=== PATIENT | female | born 1965 | race Caucasian/White ===

== ENCOUNTER 2019-05-25 07:23 | Emergency (ER) | payer BC, SELFPAY ==
[2019-05-25 07:31] VITALS: BP 118/66; PULSE 76; RESP 16; TEMP 36.7; O2SAT 99
--- NOTE | 2019-05-25 08:02 | ED.GENADUL_ITS ---
Discharge Plan Disposition Patient Disposition: HOME Condition: Stable Discharge Details Chief Complaint: Orthopedic Clinical Impression: Superficial thrombophlebitis Primary Care Provider: Chaya,Local ED Provider: Al Serrano Home Meds and New Rx's Prescriptions: No Action No Known Home Meds RF: 0 Discharge Instructions Instructions: Superficial Thrombophlebitis (ED) Additional Instructions: take 81mg aspirin daily call the radiology department on Monday for an appointment if you have severe worsening pain or fevers or difficulty breathing/chest pain return to the emergency department Medical Decision Making 53 yo female with no chronic medical problems comes in with right leg discomfort. She denies trauma, recent falls, recent immobiliziation and no fevers or chills. She has no leg swelling and has full rom of the leg. On the thigh medially is a linear area of mild erythema that is not warm to touch and is about 4cm in length and has a similar area on right lower calf medial that is 2cm in length that is also not warm to touch. No leg swelling so doubt dvt, seems more consistent with superficial thrombophlebitis. Not warm to touch or severely tender, no crepitus ,doubt cellulitis or infected thrombis or nec fasc. Will have patient start taking asa and return on Monday for an ultrasound. Return precautions also given Differential Diagnosis superficial thrombophlebitis, cellulitis HPI General Mode of arrival: ambulatory . Date/Time Provider Initiated Documentation: 05/25/19 07:49 . Limitations to Documentation: no limitations . Information obtained by: patient . History of Present Illness 53 year old F presents to the emergency department with the chief complaint of right leg pain, described as moderate, Quality is described as aching, and is localized to the right and lower extremity. Patient reports no radiation. Patient started experiencing this day(s) (2) and it has been constant. No relieving factors improve symptom(s), No exacerbating factors reported . Patient notes no other symptoms.. Patient did receive the following treatments prior to arrival, none Related Data Home Medications Medication Instructions Recorded Confirmed Unknown [No Known Home Meds] 09/08/17 05/25/19 Allergies Allergy/AdvReac Type Severity Reaction Status Date / Time codeine Allergy Mild Nausea Unverified 05/25/19 07:34 General Stated Complaint: Orthopedic KALYAN: 3 Review of Systems Review of Systems All systems reviewed & are unremarkable except as noted in HPI and below Constitutional Denies chills, Denies fever(s) and Denies weakness Cardiovascular Denies chest pain and Denies dyspnea Respiratory Denies cough and Denies dyspnea Gastrointestinal Denies abdominal pain, Denies nausea and Denies vomiting Musculoskeletal Denies joint swelling Integumentary/Breasts Denies rash Neurologic Denies weakness PFSH Social History Do you feel safe in your relationship?: Yes Exam Const General: no acute distress Orientation: alert HENMT Head: normal to inspection Ears: external ears normal General nose exam: external nose normal Mouth: moist mucous membranes Eyes General: appearance normal, both eyes and all related structures Neck Neck: normal visual inspection Resp Effort & Inspection: normal respiratory effort and able to speak in complete sentences Cardio Rate: regular rate Skin General skin exam: elasticity normal Neuro General: alert and oriented x3 Extrem General: full ROM and normal capillary refill Psych Mental Status: mental status grossly normal Course Vital Signs Temperature 36.7 C 05/25/19 07:31 Pulse 76 05/25/19 07:31 Respiratory Rate 16 05/25/19 07:31 Blood Pressure 118/66 05/25/19 07:31 Pulse Oximetry 99 05/25/19 07:31 Temperature 36.7 C 05/25/19 07:31 Temperature Source Skin 05/25/19 07:31 Pulse 76 05/25/19 07:31 Respiratory Rate 16 05/25/19 07:31 Respiratory Effort Non-Labored 05/25/19 07:31 Blood Pressure 118/66 05/25/19 07:31 Blood Pressure Position Sitting 05/25/19 07:31 Pulse Oximetry 99 05/25/19 07:31 Oxygen Delivery Method Room Air 05/25/19 07:31 Oxygen Flow Rate 0 05/25/19 07:31 Comment 05/25/19 07:31
== END 2019-05-25 08:36 | disposition home or self-care (01) ==
LOC: ER 08:45
PROVIDERS: Emergency Provider Emergency Medicine
DX: I80.01 Phlebitis and thrombophlebitis of superficial vessels of right lower extremity (principal)
CPT/HCPCS: 99282

== ENCOUNTER 2019-05-27 08:14 | Outpatient (CLI) | payer BC, SELFPAY ==
--- NOTE | 2019-05-27 13:02 | DI.US_ITS ---
SYMPTOMS/DIAGNOSIS: RT LEG PAIN, ? DVT RIGHT LOWER EXTREMITY ULTRASOUND: The deeps veins of the right lower extremity show normal compression, augmentation and color flow. The saphenofemoral junction appears unremarkable. The visualized portions of the greater saphenous vein are patent. No evidence of thrombophlebitis. IMPRESSION: No evidence of a right lower extremity deep venous thrombus.
== END 2019-05-27 08:34 ==
PROVIDERS: Visit Provider Emergency Medicine
DX: M79.604 Pain in right leg (principal)
CPT/HCPCS: 93971

== ENCOUNTER 2019-05-27 13:29 | Emergency (ER) | payer BC, SELFPAY ==
[2019-05-27 13:38] VITALS: BP 119/78; PULSE 74; RESP 16; TEMP 36.7; O2SAT 99
--- NOTE | 2019-05-27 14:10 | W.ED.GENAD ---
Discharge Plan Disposition Patient Disposition: HOME Condition: Good Discharge Details Chief Complaint: Recheck Clinical Impression: Ecchymosis Primary Care Provider: None,None ED Provider: Pamela Edwards Home Meds and New Rx's Prescriptions: No Action No Known Home Meds RF: 0 Discharge Instructions Instructions: Ecchymosis (ED) Additional Instructions: Your ultrasound today does not have any acute abnormalities, no evidence of clot. Please continue to elevate your extremity. You may treat your discomfort with Tylenol and ibuprofen. You may try topical options such as Salonpas or Lidoderm patches. medical education coordinator will contact you with primary care appointment. If you develop fevers/chills, sensation changes, increased pain or other new/worsening symptoms please seek care urgently once again. Discharge Data Discharge Date/Time-TO BE ENTERED AT DEPARTURE: 05/27/19 14:29 Medical Decision Making Patient is a 53-year-old female who was seen here 2 days ago with chief complaints of right medial thigh and posterior calf discomfort. At that time, patient was diagnosed with superficial thrombophlebitis and was advised that she would need a outpatient ultrasound to evaluate for possible DVT. At that time, ultrasound was unavailable. Patient has been taking aspirin as directed. No evidence of infection. Ultrasound was read by radiologist as negative no evidence of superficial thrombophlebitis or DVT. Discussed these findings with the patient. Advised ecchymosis from unknown etiology. She does not have ecchymosis elsewhere. She denies any easy bleeding. Denies any hematuria or melena. Advised that she will need follow-up with primary care. As the patient is new to the area and does not have a primary care, I have asked her healthcare liaison help with establishing this. She was given strict return precautions. All of her questions and concerns were addressed and she is in agreement this plan. HPI General Mode of arrival: ambulatory. Date/Time Provider Initiated Documentation: 05/27/19 13:54. Limitations to Documentation: no limitations. Information obtained by: patient and RN notes reviewed. HPI Narrative: Patient presents for results of DVT US that was preformed prior to arrival. Patient was seen here on 05/25/19 for unusual linear bruising to right medial thigh and posterior right calf. There was concern for clot, patient diagnosed with superficial thrombophlebitis and discharged home with instructions to use daily ASA which she has been doing. Denies SOB, CP. States that while discomfort over area of ecchymosis on the medial thigh persists, it overall has improved. Please see Dr. Serrano's initial note. Related Data Home Medications Medication Instructions Recorded Confirmed Unknown [No Known Home Meds] 09/08/17 05/25/19 Allergies Allergy/AdvReac Type Severity Reaction Status Date / Time codeine Allergy Mild Nausea Unverified 05/25/19 07:34 General Stated Complaint: Recheck KALYAN: 5 Review of Systems Constitutional Reports as per HPI, Denies chills, Denies fever(s), Denies headache(s) and Denies weakness ENT Denies headache(s) Cardiovascular Reports as per HPI, Denies chest pain, Denies palpitations, Denies dyspnea and Denies dyspnea on exertion Respiratory Reports as per HPI, Denies cough, Denies dyspnea and Denies dyspnea on exertion Musculoskeletal Reports as per HPI and Denies tingling Integumentary/Breasts Reports as per HPI, Denies rash, Reports unusual bruising and Denies wounds Neurologic Reports as per HPI, Denies headache(s), Denies tingling, Denies paresthesias and Denies weakness Endocrine Denies palpitations [facility] Social History Smoking/Tobacco Use Status: Never Drug use: Rarely Substance use type: does not use and marijuana Do you feel safe at home: Yes Do you feel safe in your relationship?: Yes Exam Const General: cooperative, healthy appearing, comfortable, no acute distress, well developed and well groomed Nutritional Appearance: average body habitus and well nourished Orientation: alert and awake Resp Effort & Inspection: normal respiratory effort, able to speak in complete sentences and no respiratory distress Cardio Rate: regular rate Rhythm: regular rhythm Skin General skin exam: ecchymosis (10cm x 2cm linear ecchymotic area right medial thigh) Neuro General: alert and awake Cognition: normal cognition Speech: speech normal Gait: normal gait Motor: muscle tone normal throughout Sensory Exam: no sensory deficits noted Extrem Right lower extremity: full ROM, normal capillary refill, no joint enlargement, hip/thigh Details: tenderness (along area of ecchymosis) and normal ROM; no swelling, no abrasions, no crepitus and no unusual warmth, knee Details: normal to inspection, lower leg Details: no edema; inspection abnormal (posterior calf discomfort, she indicates where the ecchymosis had been), no erythema, no tenderness, no localized swelling, no palpable cords, no deformity and no unusual warmth and foot Details: normal capillary refill and vascular exam Details: dorsalis pedis pulse present and normal capillary refill; abnormal to inspection (ecchymosis as above) and no edema Psych Appearance: grossly normal and well kempt Mental Status: mental status grossly normal Speech and Movement: speech and movement normal Course Vital Signs Temperature 36.7 C 05/27/19 13:38 Pulse 74 05/27/19 13:38 Respiratory Rate 16 05/27/19 13:38 Blood Pressure 119/78 05/27/19 13:38 Pulse Oximetry 99 05/27/19 13:38 Temperature 36.7 C 05/27/19 13:38 Temperature Source Skin 05/27/19 13:38 Pulse 74 05/27/19 13:38 Respiratory Rate 16 05/27/19 13:38 Respiratory Effort Non-Labored 05/27/19 13:41 Blood Pressure 119/78 05/27/19 13:38 Blood Pressure Position Sitting 05/27/19 13:38 Pulse Oximetry 99 05/27/19 13:38 Oxygen Delivery Method Room Air 05/27/19 13:38 Oxygen Flow Rate 0 05/27/19 13:38 Pain Level 4 05/27/19 13:38
== END 2019-05-27 14:29 | disposition home or self-care (01) ==
PROVIDERS: Emergency Provider Physician Assistant
DX: S70.11XA Contusion of right thigh, initial encounter (principal); S80.11XA Contusion of right lower leg, initial encounter; X58.XXXA Exposure to other specified factors, initial encounter
CPT/HCPCS: 99281

== ENCOUNTER 2021-04-13 14:14 | Emergency (ER) | payer BC, SELFPAY ==
[2021-04-13 14:16] VITALS: BP 144/82; PULSE 88; TEMP 36.9; O2SAT 98
--- NOTE | 2021-04-13 14:26 | ED.GENADUL_ITS ---
Discharge Plan Disposition Patient Disposition: HOME Condition: Stable Discharge Details Clinical Impression: Dermatitis Primary Care Provider: None,None ED Provider: Real Stallworth Home Meds and New Rx's Prescriptions: No Action No Known Home Meds RF: 0 Discharge Instructions Instructions: Dermatitis (ED) Additional Instructions: At this time I do not see any obvious signs of secondary infection that would require antibiotic therapy. I have placed you on the care management list help expedite outpatient primary care follow-up. I would avoid harsh make-ups, cr eams, cleaning agents, etc. to your face. I do believe that the cream that you picked up [id number] the all-natural 1% hydrocortisone cream is completely appropriate but will likely take more than 1 application to help resolve your symptoms. I would also continue to attempt to be seen by [facility] dermatology, hopefully they can see you sooner than already scheduled. Please watch for new or worsening symptoms and return to the ER for any concerns. Discharge Data Discharge Date/Time-TO BE ENTERED AT DEPARTURE: 04/13/21 15:20 Medical Decision Making 55-year-old female presents for 4-day rash across her forehead, pruritic in nature, tried 1% hydrocortisone cream and caused mild burning. She is unaware of any obvious environmental exposures. Examination is most consistent with a mild dermatitis. I see no indication for antibiotic therapy. I believe the all-natural 1% hydrocortisone cream without any additional scents or additives is perfectly appropriate. I explained to her that this may take a few days to truly see any improvement. I also stressed the importance that I believe dermatology is most appropriate for her especially if she does get a few eruptions occasionally. I recommend that she contact her dermatology team and attempt to be seen sooner than her scheduled appointment. She was encouraged to return to the ER for new or worsening symptoms. Patient was comfortable with this plan and had no additional questions or concerns at this time. Medical Records Medical records reviewed: Yes I reviewed the patient's medical records. HPI General Mode of arrival: ambulatory . Date/Time Provider Initiated Documentation: 04/13/21 14:22 . Limitations to Documentation: no limitations . Information obtained by: patient . HPI Narrative: This is a 55-year-old female, denies significant past medical history, presented to the ER for a forehead rash for the past 3 or 4 days. She states that she occasionally gets eruptions to her face, wonders if this could be rosacea, is attempting to be seen by dermatology at [facility]. She denies recent illness or trauma. She denies rash elsewhere on her body. She thought that the initial lesion on her forehead started out as a pimple but there are currently no more pustules. Her primary complaint is that of itching but not pain. Denies discharge or drainage. Patient states that she bought [id number] all natural 1% hydrocortisone cr eam, applied it prior to arrival but states that it caused the area to feel a slight burning so she wipes in the cream off I decided to come to the ER. Related Data Home Medications Medication Instructions Recorded Confirmed Unknown [No Known Home Meds] 09/08/17 04/13/21 Allergies Allergy/AdvReac Type Severity Reaction Status Date / Time codeine Allergy Mild Nausea Unverified 05/25/19 07:34 General Stated Complaint: RashLesion KALYAN: 5 Review of Systems Constitutional Constitutional: Denies fever(s) and Denies headache(s) Eyes Eyes: Denies eye discharge and Denies irritation ENT Ears, Nose, Mouth, and Throat: Denies headache(s) and Denies neck pain Musculoskeletal Musculoskeletal: Denies neck pain, Denies numbness and Denies tingling Integumentary/Breasts Skin/Breast: Reports rash Neurologic Neurologic: Denies headache(s), Denies numbness and Denies tingling ON LICENSE OF [facility] Social History Smoking/Tobacco Use Status: Never Smoking risk assessment performed?: Yes Alcohol Intake: current Alcohol Intake frequency: a few times a month Drug use: Rarely Substance use type: marijuana Do you feel safe at home: Yes Do you feel safe in your relationship?: Yes Exam Const General: cooperative, healthy appearing, comfortable and no acute distress Orientation: alert and awake [facility] Head: normal to inspection, normocephalic and atraumatic Ears: hearing grossly normal bilaterally General nose exam: external nose normal Face and sinus: erythema Face images: 1. Patchy, slightly papular erythematous lesions. They are easily blanchable. There is no induration, warmth, fluctuance, drainage. No signs of secondary infection such as cellulitis or acute acne. Skin is intact Mouth: moist mucous membranes Throat: posterior oropharynx normal Eyes General: appearance normal, both eyes and all related structures Alignment and Position: alignment normal Periorbital: periorbital findings normal Eyelids: eyelids normal Conjunctivae: conjunctivae normal Sclera: sclerae normal Cornea: corneas normal Pupils: PERRL EOM: EOM intact bilaterally Direct ophthalmoscopy: normal light reflex Neck Neck: normal visual inspection, full ROM, trachea midline and supple Resp Effort & Inspection: normal respiratory effort and able to speak in complete sentences Skin Rashes: rashes noted Neuro General: patient alert, patient awake, moves all extremities and no focal motor deficits Cognition: normal cognition Speech: speech normal Gait: normal gait Sensory Exam: no sensory deficits noted Psych Appearance: grossly normal Mental Status: mental status grossly normal Course Vital Signs Vital signs: Vital Signs Temperature 36.9 C 04/13/21 14:16 Pulse 88 04/13/21 14:16 Blood Pressure 144/82 H 04/13/21 14:16 Pulse Oximetry 98 04/13/21 14:16 Temperature 36.9 C 04/13/21 14:16 Temperature Source Temporal Artery Scan 04/13/21 14:16 Pulse 88 04/13/21 14:16 Respiratory Effort Non-Labored 04/13/21 14:21 Blood Pressure 144/82 H 04/13/21 14:16 Blood Pressure Position Sitting 04/13/21 14:16 Pulse Oximetry 98 04/13/21 14:16 Oxygen Delivery Method Room Air 04/13/21 14:16 Oxygen Flow Rate 0 04/13/21 14:16 Pain Level 5 04/13/21 14:16
--- NOTE | 2021-04-13 19:02 | NUR.NOTE ---
Nursing Note: referral to cm for pcp
== END 2021-04-13 15:20 | disposition home or self-care (01) ==
PROVIDERS: Emergency Provider Physician Assistant
DX: L30.8 Other specified dermatitis (principal)
CPT/HCPCS: 99282

== ENCOUNTER 2021-08-30 01:25 | Outpatient (CLI) | payer BC, SELFPAY ==
--- NOTE | 2021-08-30 06:15 | DI.MAMMO_ITS ---
Exam(s) MAMMO SCREENING EXAM: MAMMO SCREENING CLINICAL HISTORY: screening,Z12.39. TECHNIQUE: Bilateral full field digital CC and MLO mammographic images were obtained with 3D tomosyn thesis and utilizing computer aided detection (CAD). COMPARISON: Prior outside mammograms dating back to 2013, the most recent being 2016. FINDINGS: Fibroglandular tissue pattern is again noted be dense, this decreasing the sensitivity of the mammogr am for finding in underlying lesions. There are no new obvious spiculated masses. Punctate benign-appearing microcalcifications are again noted scattered throughout both breasts. There are no obvious malignant-appearing microcalcification groups. There is no significant architectural distortion nor skin thickening-retraction. IMPRESSION: Dense bilateral fibroglandular tissue. Stable benign findings. No obvious radiographic evidence of malignancy. BI-RADS Category 2 - Benign Findings Breast Density - Category C - Heterogeneously dense Breast density Category C or D implies that the patient has dense breast tissue. Dense breast tissue can make it harder to find cancer on a mammogram. Dense breast tissue is also associated with an incr eased risk of breast cancer. This information about the result of the mammogram report was provided to the patient to raise their awareness. Use this report when you speak with the patient about their risks for breast cancer, which includes their family history. At that time, you may recommend additional screening tests (Ultrasoun d or MRI) as these tests may add significant information. A negative radiographic report should not delay biopsy if a dominant or clinically suspicious mass is present. Up to ten percent of cancers are not identified on mammography. A negative report may reinforce clinical impression. Adenosis and dense breasts may obscure an underlying neoplasm. False positive reports average 6 to 10%. Patient will receive a letter notifying them of these results.
== END 2021-08-30 01:45 ==
DX: Z12.31 Encounter for screening mammogram for malignant neoplasm of breast (principal); R92.8 Other abnormal and inconclusive findings on diagnostic imaging of breast; R92.0 Mammographic microcalcification found on diagnostic imaging of breast
CPT/HCPCS: 77063; 77067

== ENCOUNTER 2021-09-14 11:34 | Outpatient (REF) | payer BC, SELFPAY ==
--- NOTE | 2021-09-14 10:40 | PAPFT_PTH ---
PATIENT: Serenity Perry LOC: [facility] U#:[id number] AGE/SX: 55/F ROOM: RE09/14/[address]: Susy Guerrier APRN : 1965 BED: DIS: 09/14/2021 SPEC #: [id number] RECD: 09/14/21 12:58 STATUS: MARIA D REQ #: [id number] ARIS: 09/14/21 10:[address]: Susy Guerrier DEPT: [facility] Cytology RECD BY: Belkis Chavez Tissues: 1 - CX/ENDOCX FOR PAP SMEARS Procedures: PAP THIN PREP/UVM Screening HPV DNA PROBE Comments: [id number]
== END 2021-09-14 11:35 | disposition home or self-care (01) ==
LOC: LBN 11:34
DX: Z12.4 Encounter for screening for malignant neoplasm of cervix (principal); Z11.51 Encounter for screening for human papillomavirus (HPV); R87.610 Atypical squamous cells of undetermined significance on cytologic smear of cervix (ASC-US)
CPT/HCPCS: 88142; 87624

== ENCOUNTER 2022-10-11 02:57 | Outpatient (CLI) | payer BC, SELFPAY ==
[2022-10-11 14:34] LABS: ALT 40 U/L (14-59); AST 25 U/L (15-37); Albumin 4.1 g/dL (3.4-5.0); Alkaline Phosphatase 85 U/L (46-116); Anion Gap 9.7 mmol/L (3-11); BUN 13 mg/dL (7-18); Bilirubin, Total 1.2 mg/dL (0.2-1.0); CO2 28.3 mmol/L (21.0-32.0); CREATININE 0.7 mg/dL (0.55-1.02); Calcium 9.3 mg/dL (8.5-10.1); Calculated LDL 262 mg/dL (<100); Chloride 102 mmol/L (98-107); Cholesterol 354 mg/dL (<200); Estimated GFR 100.19 (mL/min/1.73m2); Glucose 91 mg/dL (74-106); HDL Cholesterol 72 mg/dL (40-60); Potassium 4.3 mmol/L (3.5-5.1); Sodium 140 mmol/L (136-145); TSH (W/Ref FT4) 1.63 uIU/mL (0.36-3.74); Total Protein 7.1 g/dL (6.4-8.2); Triglyceride 103 mg/dL (<150)
[2022-10-11 22:19] LABS: Rheumatoid Factor <8.6 IU/mL (<12.0)
[2022-10-12 09:44] LABS: Lyme Ab w Rflx to Lyme Confirm Negative (Negative)
[2022-10-12 10:33] LABS: HIV-1/2 Ag & Ab Screen Negative (Negative)
[2022-10-13 18:49] LABS: Anaplasma phagocytophilum Negative (Negative); B. miyamotoi PCR Negative (Negative); Babesia divergens/MO-1 Negative (Negative); Babesia duncani Negative (Negative); Babesia microti Negative (Negative); Ehrlichia chaffeensis Negative (Negative); Ehrlichia ewingii/canis Negative (Negative); Ehrlichia muris eauclairensis Negative (Negative)
== END 2022-10-11 02:58 | disposition home or self-care (01) ==
LOC: LBO 02:57
PROVIDERS: PCP Nurse Practitioner Family; Visit Provider Nurse Practitioner Family
DX: Z13.220 Encounter for screening for lipoid disorders (principal); M79.10 Myalgia, unspecified site; R53.83 Other fatigue
CPT/HCPCS: 36415; 80053; 80061; 87389; 87798; 84443; 86431; 86618

== ENCOUNTER 2022-11-03 06:55 | Day surgery (SDC) | payer BC, SELFPAY ==
--- NOTE | 2022-11-02 21:03 | W.COLOREPORT ---
Date of service: 11/03/22 Time of Service: 08:53 Colonoscopy Report Date of procedure: 11/03/22 Pre-op diagnosis general: screening colonoscopy Post-op diagnosis procedure note: other (Colon polyp) Procedure: colonoscopy with polypectomy Surgeon: Franklin Gore Anesthesia Type: General:No Airway Estimated blood loss (mL): 10 Pathology: other (Polyp at 40 cm) Complications: None Disposition: same day Indications: Dinorah is a 57 year old women who presents for her first screening colonoscopy as part of routine health maintenance. Prep: Miralax/Dulcolax Procedure Start Time: : Procedure End Time: 08:38 Retraction Time: 8 Findings: Single polyp at 40 cm Procedure Description: After the induction of monitored anesthetic care, and with the patient in left lateral decubitus position, I began by performing an external anorectal exam.? Perineum and skin were normal, as was the anal verge.? T there was a fibrosed external skin tag.? Next, I performed a digital rectal exam.? I did not appreciate any abnormal findings.? Next, I advanced a colonoscope into the rectal vault.? I performed retroflexion.? There is grade 1 internal hemorrhoids.? Using insufflation, I then advanced the colonoscope beyond the rectal folds and into the sigmoid colon before advancing towards the cecum.? The quality of the prep was excellent.? The scope was noted to be in the cecum by identification of the ileocecal valve and appendiceal orifice.? I then began withdrawing the colonoscope using repeated irrigation as necessary for full evaluation of the colonic mucosa. Around 40 cm from the anal verge I identified a 0.5 cm polyp. ?It appeared sessile in character. ?I was able to remove this with a cold forcep polypectomy. ?I examined the site, and there was minimal bleeding. ?Once this was completed, I continued to withdraw the scope and examine the remainder of the colonic mucosa.?Once the scope was withdrawn to the level of the rectum, great care was taken to examine portions of the rectal folds.? Finally, the scope was withdrawn and the patient was brought to the same-day surgery recovery unit as the anesthetic wore off. ?The findings and instructions were shared with the patient prior to discharge.
--- NOTE | 2022-11-02 21:05 | W.PM.DSUDISC ---
Date of service: 11/03/22 Time of Service: 08:50 Discharge Plan Disposition Patient Disposition: Home Condition: Good Discharge Details Reason For Visit: screening colonoscopy Attending Provider: Franklin Gore Primary Care Provider: Joseph Chen Home Meds and New Rx's Prescriptions: Continued eszopiclone [Lunesta] 1 mg tablet 1 mg PO QHS Qty: 30 0RF Label Comments: 11/02/22 pt reports having not taken in awhile paroxetine HCl [Paxil] 10 mg tablet 10 mg PO DAILY Qty: 90 3RF rosuvastatin 20 mg tablet 20 mg PO DAILY Qty: 90 0RF Discontinued bisacodyl [Dulcolax (bisacodyl)] 5 mg tablet,delayed release (DR/EC) 5 mg PO ONCE Qty: 4 0RF Rx Instructions: Take according to provider's instructions for colonoscopy prep. polyethylene glycol 3350 17 gram/dose powder 17 g PO ONCE Qty: 238 0RF Rx Instructions: To be taken as directed by prescriber's office for colonoscopy prep. Discharge Instructions Instructions: Hemorrhoids (GEN), Colorectal Polyps (GEN) Additional Instructions: 1. If tolerated, consume a soft, low fiber diet for 1-2 days. [address] not drive, drink alcohol, operate machinery, make critical decisions, or do activities that require coordination or balance for 24 hours. 3. Because air was put into your colon during the procedure, expelling air from your rectum (passing gas or farting) is normal. 4. You may not have a bowel movement for 1-3 days because of the colonoscopy prep. This is normal. 5. Go directly to the emergency room if you notice any of the following: Develop chills (warm to touch), or if you have a thermometer and your temperature is above 101 Difficulty breathing or difficultly swallowing Persistent vomiting Severe abdominal pain, other than gas cramps Severe chest pain Black, tarry stools Any bleeding ? exceeding one tablespoon 6. Call your physician if the site where your intravenous was started becomes red, swollen, painful, and warm to touch. 7. Your physician has reviewed your pre-procedure medications. Please continue to take those medications as previously ordered. You will be given specific information/education regarding any changes to your medications before leaving. Activity:: Activity as Tolerated Diet:: As Tolerated Discharge Orders Discharge Orders: Discharge Order (Routine); Ordered 11/02/22 Ordered By: Franklin Gore DS: Diagnosis Discharge Diagnosis (1) Colon polyp: Status: Acute Asessment and Plan: We performed a screening colonoscopy today. The quality of the preparation was excellent, and you did great. You have some very mild internal hemorrhoids. There was 1 single polyp found around 40 cm from the anus. I will contact you when I have the results of the pathology report.
[2022-11-03 07:06] VITALS: BP 123/79; PULSE 70; RESP 18; TEMP 36.5; O2SAT 98
[2022-11-03] MEDS: Lactated Ringers 1,000 ML 80 ML IV (07:40)
--- NOTE | 2022-11-03 07:50 | W.ANESPRE ---
General Info Date of Service Date Performed: 11/03/22 Height: 5 ft Weight: 59.8 kg Body Mass Index (BMI): 25.7 Surgical Procedure: Operation Date: 11/03/22 08:20 Proposed Procedure Side Surgeon jeffrey Gore MD Meds Allergies and Home Medications Allergies Allergy/AdvReac Type Severity Reaction Status Date / Time codeine Allergy Mild Nausea Unverified 11/03/22 07:24 acetaminophen [From Percocet] Allergy Unknown Unverified 11/03/22 07:24 hydrocodone [From Vicodin] Allergy Unknown Nausea Unverified 11/03/22 07:24 oxycodone [From Percocet] Allergy Unknown Nausea Unverified 11/03/22 07:24 Home Medication Medication Instructions Recorded eszopiclone 1 mg tablet (Lunesta) 1 mg PO QHS #30 tabs 09/28/22 paroxetine HCl 10 mg tablet (Paxil) 10 mg PO DAILY #90 tabs 10/03/22 rosuvastatin 20 mg tablet 20 mg PO DAILY #90 tabs 10/14/22 Current Visit Medications: Current Medications Generic Name Dose Route Start Last Admin Trade Name Freq PRN Reason Stop Dose Admin Hyoscyamine Sulfate 0.125 mg 11/02/22 21:07 Hyoscyamine 0.125 Mg Sl/Oral/Chew SL DIRECTED PRN Ringer's Solution 1,000 mls @ 80 mls/hr 11/03/22 06:00 11/03/22 07:40 IV 12/02/22 23:59 80 mls/hr INFUSION ANTONIO Administration IV Miscellaneous Supplies 1 each 11/03/22 06:00 Iv Access IV 12/02/22 23:59 DIRECTED ANTONIO Ondansetron HCl 4 mg 11/02/22 21:07 Ondansetron 4 Mg/2 Ml Vial IVP Q4H PRN PRN Nausea / Vomiting Sodium Chloride 0 ml 11/03/22 06:00 Normal Saline Flush 10 Ml Syr IV 12/02/22 23:59 PRN PRN Sodium Chloride 0 ml 11/03/22 06:00 Normal Saline 10 Ml Vial IJ 12/02/22 23:59 DIRECTED PRN Sterile Water 0 ml 11/03/22 06:00 Water,Injection,Sterile 10 Ml Vial IJ 12/02/22 23:59 DIRECTED PRN PFSH Active Problems Active Problems: Problem Status Onset Code Hyperlipidemia E78.5 Fatigue R53.83 Myalgia M79.10 Colon cancer screening Z12.11 Medical History Medical History Adenocarcinoma in situ of endocervix (~2000) Advanced directives, counseling/discussion Annual physical exam Carcinoma in situ of cervix uteri Depression Dermatitis Hx of human papillomavirus infection Impacted cerumen, right ear Menieres disease Menopause syndrome hearing aides helpful Mixed anxiety and depressive disorder R/T menopause Ovarian cyst Pure hypercholesterolemia Rotator cuff syndrome Screening cholesterol level Screening cholesterol level Uterine fibroid Medical History Comments:: Has had 2 cone biopsies; one surgery she had N/V; her mother has same issue Surgical History Surgical History Status post cone biopsy of uterine cervix Tobacco Smoking/Tobacco Use Status: Never Passive smoking exposure: Yes Second hand exposure: Yes Alcohol Alcohol Intake: current Alcohol intake frequency: a few times a month Alcohol type: beer, wine and hard liquor Substance Use Substance use: Rarely Substance use type: marijuana Vital Signs and Lab Results Vital Signs Most Recent Vital Signs in EMR: Most Recent Vital Signs Temp Pulse Resp BP Pulse Ox 36.5 C 70 18 123/79 98 11/03/22 07:06 11/03/22 07:06 11/03/22 07:06 11/03/22 07:06 11/03/22 07:06 Lab Results Blood Type / Crossmatch: No Data to Display Complete Blood Count: No Data to Display Complete Metabolic Panel: Sodium 140 mmol/L (136-145) 10/11/22 13:05 Potassium 4.3 mmol/L (3.5-5.1) 10/11/22 13:05 Chloride 102 mmol/L (98-107) 10/11/22 13:05 Carbon Dioxide 28.3 mmol/L (21.0-32.0) 10/11/22 13:05 BUN 13 mg/dL (7-18) 10/11/22 13:05 Creatinine 0.7 mg/dL (0.55-1.02) 10/11/22 13:05 Est GFR (CKD-EPI 2020) 100.19 (mL/min/1.73m2) 10/11/22 13:05 Calcium 9.3 mg/dL (8.5-10.1) 10/11/22 13:05 Albumin 4.1 g/dL (3.4-5.0) 10/11/22 13:05 Glucose 91 mg/dL (74-106) 10/11/22 13:05 Liver Function Panel: Alanine Aminotransferase (ALT/SGPT) 40 U/L (14-59) 10/11/22 13:05 Aspartate Amino Transf (AST/SGOT) 25 U/L (15-37) 10/11/22 13:05 Coagulation Panel: No Data to Display Cardiac Panel: No Data to Display Arterial Blood Gas: No Data to Display Venous Blood Gas: No Data to Display Pancreas Panel: No Data to Display Thyroid Panel: Thyroid Stimulating Hormone (TSH) 1.63 uIU/mL (0.36-3.74) 10/11/22 13:05 Infectious Disease: HIV (1&2) Ag and Ab, 4th Generation Negative (Negative) 10/11/22 13:05 Blood Cultures: No Data to Display Toxicology Panel: No Data to Display Anesthesia Assessment and Plan Anesthesia History Personal History: PONV Family History: Other Exercise Tolerance Exercise Tolerance: Metabolic Equivalents>4 Pertinent Negatives Pertinent Negatives: No Symptoms of GERD Cardiac & Pulmonary Exam Cardiac Exam: Normal S1/S2 Heart Sounds Pulmonary Exam: Clear Bilateral Breath Sounds Implantable Cardiac Device Does patient have a Pacemaker or an ICD?: No Airway Exam Known Difficult Airway: No Mallampati Class: 1 Mouth Opening: Normal (> 3cm) Thyromental Distance: Greater than 3 cm Neck Range of Motion: Full ROM Neck Circumference: Normal Teeth Condition: Normal Dentition ASA Classification ASA Score: ASA 2 Emergency Case?: No NPO Status NPO Status: NPO Clears >2 hours, Solids >8 hours Anesthesia Plan Resuscitation Status: Full Code Anesthesia Technique: General Anesthesia Airway Planned: Natural Airway Monitors Used: Standard Monitors
[2022-11-03 08:11] VITALS: BMI 25.7
--- NOTE | 2022-11-03 08:35 | BOWEL_PTH ---
PATIENT: Serenity Perry LOC: [facility] U#:[id number] AGE/SX: 57/F ROOM: RE11/03/[address]: Franklin Gore MD : 1965 BED: DIS: 11/03/2022 SPEC #: [id number] RECD: 11/03/22 12:51 STATUS: MARIA D RE #: [id number] ARIS: 11/03/22 08:[address]: Franklin Gore DEPT: Surgical Specimen RECD BY: Belkis Chavez ENTERED: 11/03/22 12:52 SP TYPE: Bowel OTHR DR: Joseph Hurt DNP Tissues: 1 - BIOPSY BOWEL Procedures: GROSS AND MICRO LEVEL 4 Comments: [id number]
[2022-11-03 08:48] VITALS: BP 115/68; PULSE 65; RESP 16; TEMP 36.3; O2SAT 97
--- NOTE | 2022-11-03 08:56 | W.ANESPOSTOP ---
Postoperative Evaluation Date, Time and Location Date Performed: 11/03/22 Time Performed: 08:57 Patient Location: Day Surgery Unit Vital Signs Most Recent Imported Vital Signs: Most Recent Vital Signs Temp Pulse Resp BP Pulse Ox 36.5 C 70 18 123/79 98 11/03/22 07:06 11/03/22 07:06 11/03/22 07:06 11/03/22 07:06 11/03/22 07:06 Pain Score Most Recent Pain Score: Most Recent Pain Score Pain Level 2 11/03/22 07:06 Assessment Mental Status: Awake (Alert & Oriented to Patient Baseline) Airway and Respiratory Function: Patent airway with normal (patient baseline) respiratory exam Cardiovascular Function: Hemodynamically Stable Hydration Status: Adequately Hydrated Nausea & Vomiting: No Nausea or Vomiting Pain: Pt. Denies Any Pain Peripheral Nerve Block: Patient did not receive a nerve block
[2022-11-03 09:18] VITALS: BP 114/77; PULSE 66; RESP 16; TEMP 36.3; O2SAT 100
[2022-11-03 09:45] VITALS: BP 114/77; PULSE 66; RESP 16; TEMP 36.3; O2SAT 100
== END 2022-11-03 06:56 | disposition home or self-care (01) ==
PROVIDERS: PCP Nurse Practitioner Family; Visit Provider Surgery
PROC: 0DJD8ZZ Inspection of Lower Intestinal Tract, Via Natural or Artificial Opening Endoscopic (ICD-10-PCS; CPT 45378; principal; 2022-11-03 08:15)
DX: Z12.11 Encounter for screening for malignant neoplasm of colon (principal); K63.5 Polyp of colon
CPT/HCPCS: 45380; 88305

== ENCOUNTER 2022-12-05 01:46 | Outpatient (CLI) | payer BC, SELFPAY ==
--- NOTE | 2022-12-05 07:15 | DI.US_ITS ---
Exam(s) US PELVIS TRANSVAGINAL EXAM: US PELVIS TRANSVAGINAL CLINICAL HISTORY: pain,uterine fibroid, d25.9. TECHNIQUE: Transabdominal and transvaginal pelvic ultrasound was performed using standard protocol. COMPARISON: No exams were available for comparison FINDINGS: KIDNEYS: Limited renal evaluation is unremarkable. UTERUS: Position: Anteverted. Size: 6.8 long by 3.7 AP by 4.8 transverse cm Endometrium: 0.7 cm. Mildly thickened in this postmenopausal patient. Myometrium: Mildly heterogeneous without a discrete mass. Cervix: Unremarkable. OVARIES: The right ovary is not seen transabdominally or transvaginally. No right adnexal mass is se en sonographically. Left: 1.4 x 1 x 1.4 cm Cyst or mass: No suspicious cystic or solid masses. DOPPLER: Color: Symmetric and uniform flow to the left ovary. CUL-DE-SAC: Free fluid: None. Other: None. IMPRESSION: 1. Limited evaluation of the kidneys is unremarkable. 2. The endometrial stripe is mildly thickened in this postmenopausal patient at 7 mm. Please correla te clinically. Consider gynecologic consult. 3. The right ovary is not visualized on this examination. No right adnexal mass is seen sonographica lly. The left ovary is unremarkable. DATA REPOSITORY:
--- NOTE | 2022-12-05 07:15 | DI.US_ITS ---
Exam(s) US SOFT TISS ABD WALL/LOW BACK EXAM: US SOFT TISS ABD WALL/LOW BACK CLINICAL HISTORY: ? lipomas,M79.89,soft tissue mass. TECHNIQUE: Ultrasound was performed using standard protocol. COMPARISON: No exams were available for comparison FINDINGS: Sonographic assessment utilizing grayscale and color Doppler imaging was performed and targeted to th e area of clinical concern. In the right upper quadrant in the subcutaneous tissues there is a 1.9 x 0.6 x 1.7 cm slightly hypere choic area corresponding to the palpable abnormality. Sonographically this would be most suggestive of a lipoma. In the soft tissues of the left lower extremity there is a slightly hyperechoic area me asuring 1.2 x 0.8 x 0.8 cm. This corresponds to the palpable abnormality and is most suggestive sono graphically of a lipoma. No suspicious cystic or solid masses are seen sonographically. IMPRESSION: Findings most suggestive sonographically of lipomas corresponding to the palpable abnormalities. DATA REPOSITORY:
--- NOTE | 2022-12-05 07:15 | DI.MAMMO_ITS ---
Exam(s) MAMMO SCREENING EXAM: MAMMO SCREENING CLINICAL HISTORY: screening,z12.39 TECHNIQUE: Bilateral full field digital CC and MLO mammographic images were obtained with 3D tomosyn thesis and utilizing computer aided detection (CAD). COMPARISON: Available for comparison. FINDINGS: Masses/Architectural Distortion: None seen. Microcalcifications: No suspicious pleomorphic-type are seen. Skin Thickening/Nipple Retraction: None. IMPRESSION: 1. No significant interval change with no specific features of malignancy noted. 2. Unless there is more urgent need, screening mammography is recommended, as per [place] [employer] guidelines. BI-RADS Category 1 - Negative Breast Density - Category C - Heterogeneously dense Breast density category C or D implies that the patient has dense breast tissue. Dense breast tissue is very common and is not abnormal but dense breast tissue can make it harder to find cancer on a ma mmogram. Also, dense breast tissue may increase their breast cancer risk. This information about the result of the mammogram report was provided to the patient to raise their awareness. Use this report when you speak with the patient about their risks for breast cancer, which includes their family hist ory. At that time, you may recommend for more screening tests (Ultrasound or MRI) as they might be us eful based on their risk. A negative radiographic report should not delay biopsy if a dominant or clinically suspicious mass is present. Up to ten percent of cancers are not identified on mammography. A negative report may reinforce clinical impression. Adenosis and dense breasts may obscure an underlying neoplasm. False positive reports average 6 to 10%. Patient will receive a letter notifying them of these results.
== END 2022-12-05 02:06 ==
LOC: DI 01:46
PROVIDERS: PCP Nurse Practitioner Family; Visit Provider Nurse Practitioner Family
DX: Z12.31 Encounter for screening mammogram for malignant neoplasm of breast (principal); R10.2 Pelvic and perineal pain; D25.9 Leiomyoma of uterus, unspecified; R93.89 Abnormal findings on diagnostic imaging of other specified body structures; M79.89 Other specified soft tissue disorders; D17.1 Benign lipomatous neoplasm of skin and subcutaneous tissue of trunk
CPT/HCPCS: 77063; 77067; 76705; 76830; 76856

== ENCOUNTER 2023-03-20 02:17 | Outpatient (CLI) | payer SELFPAY ==
[2023-03-20 13:01] LABS: HCT 43.3 % (36.0-46.0); HGB 14.3 g/dL (11.2-15.7); MCH 29.9 pg (27.0-33.0); MCV 90 fL (80-95); MPV 9.8 fL (8.0-11.0); Platelet Count 367 10^3/uL (130-400); RBC 4.79 10^6/uL (3.93-5.22); RDW 12.7 % (11.7-14.6); RDW-SD 41.7 fL; WBC 4.24 10^3/uL (4.4-10.8)
[2023-03-20 13:03] LABS: ESR 1 mm/hr (0-30)
[2023-03-20 14:32] LABS: ALT 47 U/L (14-59); AST 30 U/L (15-37); Alkaline Phosphatase 72 U/L (46-116); Anion Gap 5.8 mmol/L (3-11); BUN 10 mg/dL (7-18); Bilirubin, Total 1.4 mg/dL (0.2-1.0); C-Reactive Protein 0.07 mg/dL (0.0-0.3); CO2 29.2 mmol/L (21.0-32.0); CREATININE 0.7 mg/dL (0.55-1.02); Calcium 8.9 mg/dL (8.5-10.1); Calculated LDL 104 mg/dL (<100); Chloride 105 mmol/L (98-107); Cholesterol 189 mg/dL (<200); Estimated GFR 100.19 (mL/min/1.73m2); Glucose 90 mg/dL (74-106); HDL Cholesterol 69 mg/dL (40-60); Sodium 140 mmol/L (136-145); Total Protein 7.5 g/dL (6.4-8.2); Triglyceride 83 mg/dL (<150); Vitamin B12 530 pg/mL (193-986)
[2023-03-21 13:45] LABS: ANA Interpretation Positive (Negative); ANA Titer Pattern 1:80 Speckled
== END 2023-03-20 02:18 | disposition home or self-care (01) ==
LOC: LBO 02:17
PROVIDERS: PCP Nurse Practitioner Family; Visit Provider Nurse Practitioner Family
DX: E78.5 Hyperlipidemia, unspecified (principal); R20.2 Paresthesia of skin; R21 Rash and other nonspecific skin eruption; M79.601 Pain in right arm; M79.602 Pain in left arm; M79.89 Other specified soft tissue disorders
CPT/HCPCS: 36415; 80053; 80061; 85027; 85652; 82607; 86038; 86140

== ENCOUNTER 2023-11-05 14:25 | Emergency (ER) | payer SELFPAY ==
[2023-11-05 14:29] VITALS: BP 143/71; PULSE 70; RESP 18; TEMP 36.6; O2SAT 100
--- NOTE | 2023-11-05 14:30 | DI.RAD_ITS ---
Exam(s) XR SHOULDER LT COMPLETE 2+V EXAM: XR SHOULDER LT COMPLETE 2+V CLINICAL HISTORY: left shoulder pain. TECHNIQUE: 2D digital imaging was performed of the left shoulder. Five images were obtained. AP, G rashey, Y-view and axillary views were obtained. COMPARISON: CR CHEST 2 VIEWS PA,LAT from 09/08/2017 FINDINGS: BONES: No acute fracture is present. No bony destructive lesion is seen. JOINTS: No dislocation present. SOFT TISSUE: Soft tissue calcification is seen adjacent to the greater tuberosity consistent with annetta cific tendinosis. The visualized lung carter are clear. IMPRESSION: Calcific tendinosis. DATA REPOSITORY: RADIATION DOSE DELIVERED:
[2023-11-05] MEDS: traMADol 50 MG TAB PO (14:51)
[2023-11-05] MEDS: Methocarbamol 500 MG TAB 1000 MG PO ×2 (14:51→15:55)
[2023-11-05] MEDS: Lidocaine 5% Patch 1 PATCH TP (15:04)
--- NOTE | 2023-11-05 15:17 | DI.VRAD_ITS ---
PROCEDURE INFORMATION: Exam: XR Left Shoulder Exam date and time: 11/05/2023 2:55 PM Age: 58 years old Clinical indication: Pain; Shoulder; Left; Additional info: Patient says known rotator cuff injury TECHNIQUE: Imaging protocol: Radiologic exam of the left shoulder. Views: 2 or more views. COMPARISON: CR CHEST 2 VIEWS PA,LAT 09/09/2017 12:32 AM FINDINGS: Bones/joints: There is supraspinatus rotator cuff calcific tendinosis. No acute fracture or dislocation. Vasculature: There are aortic arch calcifications. Soft tissues: Normal. IMPRESSION: Supraspinatus rotator cuff calcific tendinosis. No acute fracture or dislocation. Dictated and Authenticated by: Bigg Lang MD. Ordering:DIOGENES Sears MD
--- NOTE | 2023-11-05 17:32 | W.ED.GENAD ---
HPI General Stated Complaint: Orthopedic KALYAN: 4 Date/Time Provider Initiated Documentation: 11/05/23 14:27. Limitations to Documentation: no limitations. Information obtained by: patient. HPI Narrative: 58-year-old female with past medical history of rotator cuff issue of the left shoulder presents for evaluation of acute on chronic left shoulder pain. 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 She reports that she played pretty hard and that this aggravated her left shoulder. Pain localized to the left shoulder. Taking Motrin at home without significant improvement. Has had symptoms for a long time Related Data Home Medications Medication Instructions Recorded Confirmed paroxetine HCl 10 mg tablet (Paxil) 10 mg PO DAILY #90 tabs 02/08/23 11/05/23 fluticasone propionate 50 1 spray intranasal BID 04/10/23 11/05/23 mcg/actuation nasal spray,suspension polymyxin B sulfate 500,000 unit 1 drp ophthalmic (eye) .Q3h 04/10/23 11/05/23 solution for injection rosuvastatin 20 mg tablet 20 mg PO DAILY #90 tabs 05/30/23 11/05/23 estradiol-norethindrone acet 1 1 tab PO DAILY #84 tabs 10/16/23 11/05/23 mg-0.5 mg tablet lidocaine 5 % topical patch 1 patch topical DAILY #15 ea 11/05/23 (Lidoderm) meloxicam 7.5 mg tablet 7.5 mg PO DAILY #30 tabs 11/05/23 methocarbamol 750 mg tablet 750 mg PO TID #30 tabs 11/05/23 Previous Rx's Medication Instructions Recorded paroxetine HCl 10 mg tablet (Paxil) 10 mg PO DAILY #90 tabs 02/08/23 rosuvastatin 20 mg tablet 20 mg PO DAILY #90 tabs 05/30/23 estradiol-norethindrone acet 1 1 tab PO DAILY #84 tabs 10/16/23 mg-0.5 mg tablet lidocaine 5 % topical patch 1 patch topical DAILY #15 ea 11/05/23 (Lidoderm) meloxicam 7.5 mg tablet 7.5 mg PO DAILY #30 tabs 11/05/23 methocarbamol 750 mg tablet 750 mg PO TID #30 tabs 11/05/23 Allergies Allergy/AdvReac Type Severity Reaction Status Date / Time codeine AdvReac Mild Nausea Unverified 11/05/23 14:44 hydrocodone [From Vicodin] AdvReac Unknown Nausea Unverified 11/05/23 14:44 oxycodone [From Percocet] AdvReac Unknown Nausea Unverified 11/05/23 14:44 PFSH All Active Problems Chronic shoulder pain (Acute) Tendinosis of rotator cuff (Acute) Fatigue (Acute) Myalgia (Acute) Medical History Tubular adenoma of colon Carpal tunnel syndrome Soft tissue mass Rash Paresthesia and pain of both upper extremities Hyperlipidemia Impacted cerumen, right ear Menieres disease hearing aides helpful Mixed anxiety and depressive disorder R/T menopause Menopause syndrome Hx of human papillomavirus infection Uterine fibroid resolved on sono Nov 2022 Rotator cuff syndrome Ovarian cyst Depression Adenocarcinoma in situ of endocervix (~2000) Dermatitis Surgical History History of colonoscopy (~10/2022) Status post cone biopsy of uterine cervix Family History Mother Depression Diabetes Heart disease Hyperlipidemia Father , 81 Depression Diabetes Heart disease Sister No problems noted. Sister No problems noted. Sister No problems noted. Brother No problems noted. Maternal Grandfather , 52 No problems noted. Paternal Grandfather , 93 No problems noted. Maternal Grandmother , 91 No problems noted. Paternal Grandmother , 96 No problems noted. 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 Pets and animals: Yes Pets and animals: cat(s) Sexually active: Yes Do you think of yourself as: straight/heterosexual Current gender identity: female What is your relationship status?: living with partner How often do you talk on the phone with friends or family?: three or more times per week How often do you get together with friends or relatives?: once per week How often do you attend orthodox or restorationism services?: decline to answer Panel score (0-1 are the most socially isolated patients): 2 What type of physical activity do you participate in: decline to answer Duration: decline to answer Frequency: decline to answer Jaycee/Pentecostalism: No preference Special jaycee needs: No Seatbelt use: always Helmet use: Yes Helmet use: always Drive intox or ride w/intox bookmobile driver: No Do you feel safe at home: Yes Do you feel safe in your relationship?: Yes History History 0 Para Hx # Term Pregnancies Multiple births Hx # Pregnancies Ectopic pregnancies AB induced Hx Number of Living Children AB spontaneous PAWSS Have you Been Recently Intoxicated or Drunk Within the Last 30 days?: No Have you Ever Experienced Previous Episodes of Alcohol Withdrawal?: No Have you ever Experienced Withdrawal Seizures?: No Have you ever Experienced Delirium Tremens(DT)s?: No Have you ever undergone Alcohol Rehabilitation Treatment (i.e, inpt ot outpatient treatment programs)?: No Have you ever Experienced Blackouts?: No Have you ever Combined Alcohol with other Downers within the last 90 days?: No Have you ever Combined Alcohol with any other Substance of Abuse during the last 90 days?: No Positive Blood Alcohol level on Presentation? [PCS.BAL]: No Evidence of Increased Autonomic Activity (i.e. HR>120, tremor, sweating, agitation, nausea)?: No Result: 0 Exam Narrative Exam Narrative: Review of Systems: All systems reviewed & are unremarkable except as noted in HPI and below Well-developed, no acute distress NACT PERRL, normal conjunctiva RRR Unlabored respiratory effort Nondistended abdomen Extremities w/o deformity, no cyanosis, no edema Left shoulder without erythema, effusion, tenderness to palpation, generally range of motion is intact No rashes or lesions. no focal neurologic deficits Appropriate mood and affect Course Vital Signs Vital signs: Vital Signs Temperature 36.6 C 11/05/23 14:29 Pulse 70 11/05/23 14:29 Respiratory Rate 18 11/05/23 14:29 Blood Pressure 143/71 H 01/07/24 14:29 Pulse Oximetry 100 11/05/23 14:29 Temperature 36.6 C 11/05/23 14:29 Temperature Source Temporal Artery Scan 11/05/23 14:29 Pulse 70 11/05/23 14:29 Respiratory Rate 18 11/05/23 14:29 Respiratory Effort Normal, Non-Labored 11/05/23 14:33 Blood Pressure 143/71 H 11/05/23 14:29 Blood Pressure Position Sitting 11/05/23 14:29 Pulse Oximetry 100 11/05/23 14:29 Oxygen Delivery Method Room Air 11/05/23 14:29 Oxygen Flow Rate 0 11/05/23 14:29 Medical Decision Making Emergent evaluation of acute on chronic left shoulder pain. No recent trauma. Did have an aggravating incident with excessive drumming. I reviewed the medical record and did not note a prior x-ray, so 1 was ordered today. X-ray does indicate calcific tendinosis. Will treat with NSAIDs, Robaxin, lidocaine patch. Referral was placed for orthopedic follow-up and surgical evaluation if needed. Medical Records Medical records reviewed: Yes I reviewed the patient's medical records. Quality:[facility] Health Related Social Needs: No Data to Display Discharge Plan Disposition Patient Disposition: Home Discharge Details Clinical Impression: Tendinosis of rotator cuff, Chronic shoulder pain Primary Care Provider: Joseph Chen ED Provider: Zander Cardoza Home Meds and New Rx's Prescriptions: New methocarbamol 750 mg tablet 750 mg PO TID Qty: 30 0RF lidocaine [Lidoderm] 5 % adhesive patch,medicated 1 patch topical DAILY Qty: 15 0RF Rx Instructions: leave on most painful area for up to 12 hrs meloxicam 7.5 mg tablet 7.5 mg PO DAILY Qty: 30 0RF Rx Instructions: take with food, don't take other NSAIDS on this medicine No Action paroxetine HCl [Paxil] 10 mg tablet 10 mg PO DAILY Qty: 90 3RF polymyxin B sulfate 500,000 unit recon soln 1 drp ophthalmic (eye) .Q3h Rx Instructions: administer diluted to 0.1 % final concentration fluticasone propionate 50 mcg/actuation spray,suspension 1 spray intranasal BID Rx Instructions: administer into each nostril rosuvastatin 20 mg tablet 20 mg PO DAILY Qty: 90 4RF estradiol-norethindrone acet 1-0.5 mg tablet 1 tab PO DAILY Qty: 84 6RF Discharge Instructions Instructions: Rotator Cuff Tendinitis (ED) Additional Instructions: Take medications as prescribed. Follow-up with orthopedic surgery clinic for further evaluation and management Referrals: Mihir Rodriguez MD [ [facility] STAFF PHYSICIAN] - Discharge Data Discharge Date/Time-TO BE ENTERED AT DEPARTURE: 11/05/23 15:26
== END 2023-11-05 15:26 | disposition home or self-care (01) ==
PROVIDERS: Emergency Provider Emergency Medicine; PCP Nurse Practitioner Family
DX: M25.512 Pain in left shoulder (principal); M67.812 Other specified disorders of synovium, left shoulder; G89.29 Other chronic pain; X50.3XXA Overexertion from repetitive movements, initial encounter; Y93.J2 Activity, drum and other percussion instrument playing
CPT/HCPCS: 99283; 73030

== ENCOUNTER 2023-11-12 07:17 | Emergency (ER) | payer BC, SELFPAY ==
[2023-11-12 07:21] VITALS: BP 147/79; PULSE 81; RESP 18; TEMP 36.6; O2SAT 96
--- NOTE | 2023-11-12 07:31 | W.ED.GENAD ---
HPI General Stated Complaint: Orthopedic KALYAN: 4 Date/Time Provider Initiated Documentation: 11/12/23 07:31. HPI Narrative: MDM This is an overall very well-appearing normothermic and not tachycardic [id number] 58-year-old female with left shoulder pain recent diagnosis of calcific tendinitis concerning for worsening symptoms. No significant limitations in range of motion to joints and no fevers so doubt septic joint. The site of the recent cortisone injection appears to be healing well. No recent PICC line or history of IV drug use to suggest increased risk for upper extremity DVT. No pain out of proportion to suggest necrotizing soft tissue infection. No significant erythema to suggest cellulitis. No vesicles to suggest zoster. No fluctuance to suggest abscess. Left hand warm and well-perfused and patient has no history of thoracic rib so my suspicion for thoracic outlet syndrome is low. No nausea vomiting or abdominal pain so doubt referred pain. No chest pain to suggest ACS. No signs of dislocation murray recent trauma so will defer repeat plain films. No history of malignancy and good range of motion so my suspicion for pathological fracture is low so I did not feel that the patient required CT scan. Patient may certainly benefit from an MRI down the road if her symptoms fail to resolve. We discussed discontinuing her methocarbamol in favor of diazepam which I prescribed after reviewing her PDMP record which showed no prescriptions. We discussed not drinking ethanol driving or operate any machinery while taking diazepam. I educated the patient on pendulum exercises. We discussed return to the emergency department for worsening pain any color changes in the left hand or any fevers or decreased range of motion. She understood her return indications and was discharged with an empiric trial of expectant outpatient management. Patient was given initial doses of ibuprofen and acetaminophen and diazepam in the emergency department. She was counseled on taking scheduled ibuprofen and acetaminophen. She was advised to either take her ibuprofen or her previously prescribed meloxicam but not both together. Her partner will drive her home. Chronic conditions affecting the care of the patient: N/A History obtained from an outside historian: Patient's partner External record review: N/A Medications: Ibuprofen, acetaminophen, diazepam Social determinants of health affecting disposition: N/A Management discussed with: N/A Treatment/interventions considered: N/A Response to therapies provided: N/A HPI This is a 58-year-old [id number]-wrbbmimy female arrived to the emergency department via private vehicle in the setting of increased left shoulder pain since a cortisone injection last week. Patient reports that she woke up with left shoulder pain approximately 1 week ago after an episode of driving. She was diagnosed with calcific tendinitis. She subsequently saw orthopedics and 5 days ago and received a cortisone injection. She has attempted treatment with prescribed methocarbamol and meloxicam but her symptoms have gradually worsened. She has been trying ice and heat. She has intermittently had some numbness in her left hand but no color changes. She has had no fevers. No surgeries to her left shoulder in the past. She has been occasionally holding her hand over her head to improve her symptoms. She has had no recent upper extremity PICC lines nor any history of IV drug use. She denies fevers chest pain abdominal pain nausea and vomiting. Exam General: Well-appearing in no acute distress speaking in complete sentences. Head: Normocephalic, atraumatic. Eye: Extraocular eye movements intact. No conjunctival injection. No scleral icterus. Ear, nose, mouth, throat: Grossly normal inspection. Normal voice, handling secretions normally. Neck: Trachea midline. Cardiovascular: Well-perfused distal extremities. Regular rate and rhythm Respiratory: Nonlabored respiration. Clear lungs bilaterally Gastrointestinal: Nondistended abdomen. Musculoskeletal:Left shoulder with mychal deformities, ecchymoses nor lacerations. On fiber technician aspect of left shoulder injection site with no signs of infection. There is some mild erythema in a rectangluar patch on the lateral aspect of the left shoulder coincidincing with the site of a lidocain patch. Left hand warm and well perfused w/2+ left radial pulse. Cap refill less than 2 seconds in the left finger tips. Sensation and motor function intact in the left hand across the radial, median, and ulnar nerve distributions. left shoulder ROM: ~90 degrees ABduction. ~90 degrees flexion. ~15 degrees extension. Patient able to touch her left hand to her contralateral shoulder. full ROM left elbow. Patient able to fully supinate and pronate. Skin: Normal for age and race, grossly normal temperature and turgor. No acute rash. Neurologic: Alert and appropriate, no apparent acute deficits. Psychiatric: Mood and manner are appropriate. Grooming and personal hygiene are appropriate. Related Data Home Medications Medication Instructions Recorded Confirmed rosuvastatin 20 mg tablet 20 mg PO DAILY #90 tabs 05/30/23 11/12/23 estradiol-norethindrone acet 1 1 tab PO DAILY #84 tabs 10/16/23 11/12/23 mg-0.5 mg tablet lidocaine 5 % topical patch 1 patch topical DAILY #15 ea 11/05/23 11/12/23 (Lidoderm) meloxicam 7.5 mg tablet 7.5 mg PO DAILY #30 tabs 11/05/23 11/12/23 paroxetine HCl 10 mg tablet (Paxil) 10 mg PO DAILY 11/07/23 11/12/23 diazepam 5 mg tablet 5 mg PO Q6H PRN PRN #7 tabs 11/12/23 Previous Rx's Medication Instructions Recorded rosuvastatin 20 mg tablet 20 mg PO DAILY #90 tabs 05/30/23 estradiol-norethindrone acet 1 1 tab PO DAILY #84 tabs 10/16/23 mg-0.5 mg tablet lidocaine 5 % topical patch 1 patch topical DAILY #15 ea 11/05/23 (Lidoderm) meloxicam 7.5 mg tablet 7.5 mg PO DAILY #30 tabs 11/05/23 diazepam 5 mg tablet 5 mg PO Q6H PRN PRN #7 tabs 11/12/23 Allergies Allergy/AdvReac Type Severity Reaction Status Date / Time codeine AdvReac Mild Nausea Verified 11/12/23 07:25 hydrocodone [From Vicodin] AdvReac Unknown Nausea Verified 11/12/23 07:25 oxycodone [From Percocet] AdvReac Unknown Nausea Verified 11/12/23 07:25 PFSH All Active Problems (Updated 11/12/23 @ 07:50 by Manuel Lovelace MD) Calcific tendinitis of left shoulder (Acute) Chronic shoulder pain (Acute) Tendinosis of rotator cuff (Acute) Fatigue (Acute) Myalgia (Acute) Medical History Tubular adenoma of colon Carpal tunnel syndrome Soft tissue mass Rash Paresthesia and pain of both upper extremities Hyperlipidemia Impacted cerumen, right ear Menieres disease hearing aides helpful Mixed anxiety and depressive disorder R/T menopause Menopause syndrome Hx of human papillomavirus infection Uterine fibroid resolved on sono Nov 2022 Rotator cuff syndrome Ovarian cyst Depression Adenocarcinoma in situ of endocervix (~2000) Dermatitis Surgical History History of colonoscopy (~10/2022) Status post cone biopsy of uterine cervix Family History Mother Depression Diabetes Heart disease Hyperlipidemia Father , 81 Depression Diabetes Heart disease Sister No problems noted. Sister No problems noted. Sister No problems noted. Brother No problems noted. Maternal Grandfather , 52 No problems noted. Paternal Grandfather , 93 No problems noted. Maternal Grandmother , 91 No problems noted. Paternal Grandmother , 96 No problems noted. 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 Pets and animals: Yes Pets and animals: cat(s) Sexually active: Yes Do you think of yourself as: straight/heterosexual Current gender identity: female What is your relationship status?: living with partner How often do you talk on the phone with friends or family?: three or more times per week How often do you get together with friends or relatives?: once per week How often do you attend roman catholic or jehovah's witness services?: decline to answer Panel score (0-1 are the most socially isolated patients): 2 What type of physical activity do you participate in: decline to answer Duration: decline to answer Frequency: decline to answer Jaycee/Mormon: No preference Special jaycee needs: No Seatbelt use: always Helmet use: Yes Helmet use: always Drive intox or ride w/intox package car driver: No Do you feel safe at home: Yes Do you feel safe in your relationship?: Yes History History 0 Para Hx # Term Pregnancies Multiple births Hx # Pregnancies Ectopic pregnancies AB induced Hx Number of Living Children AB spontaneous PAWSS Have you Been Recently Intoxicated or Drunk Within the Last 30 days?: No Have you Ever Experienced Previous Episodes of Alcohol Withdrawal?: No Have you ever Experienced Withdrawal Seizures?: No Have you ever Experienced Delirium Tremens(DT)s?: No Have you ever undergone Alcohol Rehabilitation Treatment (i.e, inpt ot outpatient treatment programs)?: No Have you ever Experienced Blackouts?: No Have you ever Combined Alcohol with other Downers within the last 90 days?: No Have you ever Combined Alcohol with any other Substance of Abuse during the last 90 days?: No Result: 0 Course Vital Signs Vital signs: Vital Signs Temperature 36.6 C 11/12/23 07:21 Pulse 81 11/12/23 07:21 Respiratory Rate 18 11/12/23 07:21 Blood Pressure 147/79 H 11/12/23 07:21 Pulse Oximetry 96 11/12/23 07:21 Temperature 36.6 C 11/12/23 07:21 Temperature Source Temporal Artery Scan 11/12/23 07:21 Pulse 81 11/12/23 07:21 Respiratory Rate 18 11/12/23 07:21 Respiratory Effort Normal, Non-Labored 11/12/23 07:30 Blood Pressure 147/79 H 11/12/23 07:21 Blood Pressure Position Sitting 11/12/23 07:21 Pulse Oximetry 96 11/12/23 07:21 Medical Decision Making Quality:SDOH Health Related Social Needs: No Data to Display Discharge Plan Disposition Patient Disposition: Home Discharge Details Clinical Impression: Calcific tendinitis of left shoulder Primary Care Provider: Joseph Chen ED Provider: Manuel Lovelace Fullerton Meds and New Rx's Prescriptions: New diazepam 5 mg tablet 5 mg PO Q6H PRN PRNQty: 7 0RF Continued paroxetine HCl [Paxil] 10 mg tablet 10 mg PO DAILY rosuvastatin 20 mg tablet 20 mg PO DAILY Qty: 90 4RF estradiol-norethindrone acet 1-0.5 mg tablet 1 tab PO DAILY Qty: 84 6RF lidocaine [Lidoderm] 5 % adhesive patch,medicated 1 patch topical DAILY Qty: 15 0RF Rx Instructions: leave on most painful area for up to 12 hrs meloxicam 7.5 mg tablet 7.5 mg PO DAILY Qty: 30 0RF Rx Instructions: take with food, don't take other NSAIDS on this medicine Discontinued methocarbamol 750 mg tablet 750 mg PO TID Discharge Instructions Instructions: Tendinitis (ED) Additional Instructions: You were seen in the emergency department for your shoulder pain. You are receiving diazepam which is a medicine to reduce muscle spasm. Please take this as directed but do not drink alcohol drive or operate any machinery while taking this medicine. Please also take the following medications. For your pain please take medications as follows: 1. Take acetaminophen (Tylenol), 1,000 mg (two 500 mg tabs) every 6 hours [2. Take ibuprofen (Advil), 400 mg every 6 hours.] Alternatively you may take your meloxicam but do not take your ibuprofen with meloxicam. Please attempt to complete the pendulum activities we discussed please return to the emergency department if your hand turns blue. If you develop worsening pain or if you notice any significant swelling of your left shoulder or fevers. Stand Alone Forms: Physical Therapy Referral Discharge Data Discharge Date/Time-TO BE ENTERED AT DEPARTURE: 11/12/23 08:14
[2023-11-12] MEDS: Acetaminophen 500 MG TAB 1000 MG PO (07:55)
[2023-11-12] MEDS: Ibuprofen 600 MG TAB PO (07:55)
[2023-11-12] MEDS: diazePAM 5 MG TAB PO (07:55)
== END 2023-11-12 08:14 | disposition home or self-care (01) ==
PROVIDERS: Emergency Provider Emergency Medicine; PCP Nurse Practitioner Family
DX: M25.512 Pain in left shoulder (principal); M75.32 Calcific tendinitis of left shoulder; G89.29 Other chronic pain; E78.5 Hyperlipidemia, unspecified; Z79.899 Other long term (current) drug therapy
CPT/HCPCS: 99283; 99284

== ENCOUNTER → 2023-12-07 09:05 | Outpatient (CLI) | payer BC, SELFPAY ==
--- NOTE | 2023-12-07 07:15 | DI.MRI_ITS ---
Exam(s) MR UPPER JOINT LT WO EXAM: MR UPPER JOINT LT WO CLINICAL HISTORY: LEFT SHOULDER PAIN,calcific tendinitis, m75.32. TECHNIQUE: Multiplanar multisequence MRI was performed. COMPARISON: Plain films 05 November 2023 FINDINGS: BONES: There is no fracture or contusion pattern. Small subchondral cyst in the posterior superior humeral head. JOINTS:The acromioclavicular joint is normal. The glenohumeral joint is normal. TENDONS: Supraspinatus: Minimally increased signal distally. No focal tear. The calcification seen on plain films not definitely visible. Infraspinatus: Increased signal in the superior portion consistent with tendinosis. No focal tear vis ible. Subscapularis: Unremarkable. [place]: Unremarkable. Biceps and [place]: Unremarkable. MUSCLES: Unremarkable. GLENOID LABRUM: Unremarkable on this noncontrast examination. SOFT TISSUES: Unremarkable. OTHER: Subacromial and subdeltoid bursae show no fluid. . IMPRESSION: [id number]-[id number] tendinosis of the supraspinatus and infraspinatus tendons. DATA REPOSITORY:
== END ==
PROVIDERS: PCP Nurse Practitioner Family; Visit Provider Student in an Organized Health Care Education/Training Program
DX: M75.32 Calcific tendinitis of left shoulder (principal)
CPT/HCPCS: 73221

== ENCOUNTER 2024-01-16 09:17 | Outpatient (REF) | payer BC, SELFPAY ==
--- NOTE | 2024-01-16 09:00 | PAPFT_PTH ---
PATIENT: Serenity Perry LOC: [facility] U#:[id number] AGE/SX: 58/F ROOM: RE01/16/[address]: Joseph Hurt DNP : 1965 BED: DIS: 01/16/2024 SPEC #: [id number] RECD: 01/16/24 12:50 STATUS: MARIA D REAditya #: [id number] ARIS: 01/16/24 09:[address]: Joseph Chen DEPT: [facility] Cytology RECD BY: Belkis Chavez Tissues: 1 - CX/ENDOCX FOR PAP SMEARS Procedures: PAP THIN PREP/UVM Screening HPV DNA PROBE Comments: [id number]
== END 2024-01-16 09:18 | disposition home or self-care (01) ==
LOC: LBN 09:17
PROVIDERS: PCP Nurse Practitioner Family; Visit Provider Nurse Practitioner Family
DX: Z12.4 Encounter for screening for malignant neoplasm of cervix (principal)
CPT/HCPCS: 88142; 87624

== ENCOUNTER 2024-04-10 16:18 | Outpatient (REF) | payer BC, SELFPAY ==
--- NOTE | 2024-04-10 16:15 | ENDOMET_PTH ---
PATIENT: Serenity Perry LOC: [facility] U#:[id number] AGE/SX: 58/F ROOM: RE04/10/[address]: Matilda Benedict MD : 1965 BED: DIS: 04/10/2024 SPEC #: [id number] RECD: 04/10/24 17:48 STATUS: MARIA D REQ #: [id number] ARIS: 04/10/24 16:[address]: Matilda Benedict DEPT: Surgical Specimen RECD BY: Belkis Chavez ENTERED: 04/10/24 17:49 SP TYPE: Endomet OTHR DR: Joseph Hurt DNP Tissues: 1 - ENDOMETRIUM BX/CURRETTE Procedures: GROSS AND MICRO LEVEL 4 Comments: [id number]
== END 2024-04-10 16:19 | disposition home or self-care (01) ==
LOC: LBN 16:18
PROVIDERS: PCP Nurse Practitioner Family; Visit Provider Obstetrics & Gynecology
DX: N95.0 Postmenopausal bleeding (principal); N95.1 Menopausal and female climacteric states
CPT/HCPCS: 88305

== ENCOUNTER 2024-04-12 02:59 | Outpatient (CLI) | payer BC, SELFPAY ==
[2024-04-12 14:10] LABS: ALT 37 U/L (14-59); AST 21 U/L (15-37); Albumin 4.1 g/dL (3.4-5.0); Alkaline Phosphatase 58 U/L (46-116); Anion Gap 6.3 mmol/L (3-11); BUN 10 mg/dL (7-18); Bilirubin, Total 1.3 mg/dL (0.2-1.0); CO2 29.7 mmol/L (21.0-32.0); CREATININE 0.8 mg/dL (0.55-1.02); Chloride 104 mmol/L (98-107); Estimated GFR 84.82 (mL/min/1.73m2); Glucose 91 mg/dL (74-106); Sodium 140 mmol/L (136-145); Total Protein 7.3 g/dL (6.4-8.2)
== END 2024-04-12 03:00 | disposition home or self-care (01) ==
LOC: LBO 02:59
PROVIDERS: PCP Nurse Practitioner Family; Visit Provider Obstetrics & Gynecology
DX: N95.1 Menopausal and female climacteric states (principal)
CPT/HCPCS: 36415; 80053

== ENCOUNTER 2024-06-04 02:35 | Outpatient (CLI) | payer BC, SELFPAY ==
[2024-06-04 08:42] LABS: HCT 40.8 % (36.0-46.0); HGB 13.8 g/dL (11.2-15.7); MCH 29.8 pg (27.0-33.0); MCHC 33.8 % (32.0-36.0); MCV 88 fL (80-95); MPV 9.4 fL (8.0-11.0); Platelet Count 426 10^3/uL (130-400); RBC 4.63 10^6/uL (3.93-5.22); RDW 12.7 % (11.7-14.6); RDW-SD 40.5 fL; WBC 4.79 10^3/uL (4.4-10.8)
[2024-06-04 08:56] LABS: ALT 101 U/L (14-59); AST 45 U/L (15-37); Alkaline Phosphatase 78 U/L (46-116); Anion Gap 7.3 mmol/L (3-11); BUN 14 mg/dL (7-18); Bilirubin, Total 1.33 mg/dL (0.2-1.0); CO2 29.7 mmol/L (21.0-32.0); CREATININE 0.7 mg/dL (0.55-1.02); Calcium 9.2 mg/dL (8.5-10.1); Chloride 105 mmol/L (98-107); Estimated GFR 99.57 (mL/min/1.73m2); Glucose 114 mg/dL (74-106); Potassium 4.1 mmol/L (3.5-5.1); Sodium 142 mmol/L (136-145); Total Protein 7.2 g/dL (6.4-8.2)
[2024-06-05 12:58] LABS: Albumin g/dL 4.5 g/dL (3.6-5.2); Total Protein 6.8 g/dL (6.3-8.2)
== END 2024-06-04 02:36 | disposition home or self-care (01) ==
LOC: LBO 02:35
PROVIDERS: Obstetrics & Gynecology; PCP Nurse Practitioner Family; Visit Provider Psychiatry & Neurology Neurology
DX: N95.1 Menopausal and female climacteric states (principal); Z01.818 Encounter for other preprocedural examination; G62.9 Polyneuropathy, unspecified
CPT/HCPCS: 36415; 80053; 85027; 86850; 86900; 86901; 84165

== ENCOUNTER 2024-06-05 06:12 | Day surgery (SDC) | payer BC, SELFPAY ==
[2024-06-05] VITALS (22 sets, daily range): BP systolic 106–166; BP diastolic 55–132; PULSE 59–75; RESP 10–25; TEMP 36.1–36.6; O2SAT 91–100; BMI 25.9
[2024-06-05] MEDS: Lactated Ringers 1,000 ML 125 ML IV (06:54)
--- NOTE | 2024-06-05 07:13 | ANES.PREOP_ITS ---
General Info Date of Service Date Performed: 06/05/24 Height: 5 ft 0.75 in Weight: 61.9 kg Body Mass Index (BMI): 25.9 Surgical Procedure: Operation Date: 06/05/24 07:40 Proposed Procedure Side Surgeon p Dilation & Curettage with Hysteroscopy Matilda Benedict MD Actual Procedure Side Surgeon p Dilation & Curettage with Hysteroscopy Not Applicable Matilda Benedict MD Meds Allergies and Home Medications Allergies Allergy/AdvReac Type Severity Reaction Status Date / Time codeine AdvReac Mild Nausea Verified 06/05/24 06:33 hydrocodone (From Vicodin) AdvReac Unknown Nausea Verified 06/05/24 06:33 oxycodone (From Percocet) AdvReac Unknown Nausea Verified 06/05/24 06:33 Home Medication ?Medication ?Instructions ?Recorded rosuvastatin 20 mg tablet 20 mg PO DAILY #90 tabs 05/30/23 paroxetine HCl 10 mg tablet (Paxil) 10 mg PO DAILY #90 tabs 01/17/24 fezolinetant 45 mg tablet (Veozah) 45 mg PO DAILY #30 tabs 05/29/24 Current Visit Medications: Current Medications Generic Name Dose Route Start Last Admin Trade Name Freq PRN Reason Stop Dose Admin Ringer's Solution 1,000 mls @ 125 mls/hr 06/05/24 06:00 IV 06/05/24 23:59 INFUSION ANTONIO IV Miscellaneous Supplies 1 each 06/05/24 06:00 Iv Access IV 06/05/24 23:59 DIRECTED ANTONIO Sodium Chloride 0 ml 06/05/24 06:00 Normal Saline Flush 10 Ml Syr IV 06/05/24 23:59 PRN PRN Sodium Chloride 0 ml 06/05/24 06:00 Normal Saline 10 Ml Vial IJ 06/05/24 23:59 DIRECTED PRN Sterile Water 0 ml 06/05/24 06:00 Water,Injection,Sterile 10 Ml Vial IJ 06/05/24 23:59 DIRECTED PRN PFSH Active Problems Active Problems: Problem Status Onset Code Carpal tunnel syndrome of right wrist Acute G56.01 Carpal tunnel syndrome of left wrist Acute G56.02 Left arm pain Acute M79.602 Post-menopausal bleeding Acute N95.0 Neuropathy Acute G62.9 Calcific tendinitis of left shoulder Acute M75.32 Fatigue Acute R53.83 Myalgia Acute M79.10 Medical History Medical History Gilbert syndrome No-show for appointment Tubular adenoma of colon Carpal tunnel syndrome Soft tissue mass Rash Paresthesia and pain of both upper extremities Hyperlipidemia Impacted cerumen, right ear Menieres disease hearing aides helpful Mixed anxiety and depressive disorder R/T menopause Menopause syndrome HRT from Nov 2022 to March 2024 - stopped due to PMB Hx of human papillomavirus infection Uterine fibroid resolved on sono Nov 2022 Rotator cuff syndrome Depression Adenocarcinoma in situ of endocervix (~2000) Dermatitis Medical History Comments:: Has had 2 cone biopsies; one surgery she had N/V; her mother has same issue Surgical History Surgical History History of colonoscopy (~10/2022) Status post cone biopsy of uterine cervix Tobacco Smoking/Tobacco Use Status: Never Passive smoking exposure: Yes Second hand exposure: Yes Alcohol Alcohol Intake: current Alcohol intake frequency: a few times a month Alcohol type: beer, wine and hard liquor Substance Use Substance use: Never Substance use type: does not use Prental History History 1 Para Hx # Term Pregnancies Multiple births Hx # Pregnancies Ectopic pregnancies AB induced 1 Hx Number of Living Children AB spontaneous Vital Signs and Lab Results Vital Signs Most Recent Vital Signs in EMR: Most Recent Vital Signs Temp Pulse Resp BP Pulse Ox 36.6 C 71 16 132/79 97 06/05/24 06:37 06/05/24 06:37 06/05/24 06:37 06/05/24 06:37 06/05/24 06:37 Lab Results Blood Type / Crossmatch: Antibody Screen NEGATIVE 06/04/24 Complete Blood Count: White Blood Count 4.79 10^3/uL (4.4-10.8) 06/04/24 08:30 Red Blood Count 4.63 10^6/uL (3.93-5.22) 06/04/24 08:30 Hemoglobin 13.8 g/dL (11.2-15.7) 06/04/24 08:30 Hematocrit 40.8 % (36.0-46.0) 06/04/24 08:30 Platelet Count 426 10^3/uL (130-400) H 06/04/24 08:30 Complete Metabolic Panel: Sodium 142 mmol/L (136-145) 06/04/24 08:30 Potassium 4.1 mmol/L (3.5-5.1) 06/04/24 08:30 Chloride 105 mmol/L (98-107) 06/04/24 08:30 Carbon Dioxide 29.7 mmol/L (21.0-32.0) 06/04/24 08:30 BUN 14 mg/dL (7-18) 06/04/24 08:30 Creatinine 0.7 mg/dL (0.55-1.02) 06/04/24 08:30 Est GFR (CKD-EPI 2020) 99.57 (mL/min/1.73m2) 06/04/24 08:30 Calcium 9.2 mg/dL (8.5-10.1) 06/04/24 08:30 Albumin 4.0 g/dL (3.4-5.0) 06/04/24 08:30 Glucose 114 mg/dL (74-106) H 06/04/24 08:30 Liver Function Panel: Alanine Aminotransferase (ALT/SGPT) 101 U/L (14-59) H 06/04/24 08:30 Aspartate Amino Transf (AST/SGOT) 45 U/L (15-37) H 06/04/24 08: 30 Coagulation Panel: No Data to Display Cardiac Panel: No Data to Display Arterial Blood Gas: No Data to Display Venous Blood Gas: No Data to Display Pancreas Panel: No Data to Display Thyroid Panel: No Data to Display Infectious Disease: No Data to Display Blood Cultures: No Data to Display Toxicology Panel: No Data to Display Anesthesia Assessment and Plan Anesthesia History Personal History: PONV Family History: No Family History of Anesthesia Complications Exercise Tolerance Exercise Tolerance: Metabolic Equivalents>4 Pertinent Negatives Pertinent Negatives: No Symptoms of GERD Cardiac & Pulmonary Exam Cardiac Exam: Normal S1/S2 Heart Sounds Pulmonary Exam: Clear Bilateral Breath Sounds Implantable Cardiac Device Does patient have a Pacemaker or an ICD?: No Airway Exam Known Difficult Airway: No Mallampati Class: 1 Mouth Opening: Normal (> 3cm) Thyromental Distance: Greater than 3 cm Neck Range of Motion: Full ROM Neck Circumference: Normal Teeth Condition: Normal Dentition ASA Classification ASA Score: ASA 2 Emergency Case?: No NPO Status NPO Status: NPO Clears >2 hours, Solids >8 hours Anesthesia Plan Resuscitation Status: Full Code Anesthesia Technique: General Anesthesia Airway Planned: Natural Airway Monitors Used: Standard Monitors
--- NOTE | 2024-06-05 08:00 | ENDOMET_PTH ---
PATIENT: Serenity Perry LOC: [facility] U#:[id number] AGE/SX: 58/F ROOM: RE06/05/[address]: Matilda Benedict MD : 1965 BED: DIS: 06/05/2024 SPEC #: [id number] RECD: 06/05/24 15:16 STATUS: MARIA D REQ #: [id number] ARIS: 06/05/24 08:[address]: Matilda Benedict DEPT: Surgical Specimen RECD BY: Umm Lamas ENTERED: 06/05/24 15:18 SP TYPE: Endomet OTHR DR: Joseph Hurt DNP Tissues: 1 - ENDOMETRIUM BX/CURRETTE 2 - ENDOMETRIUM BX/CURRETTE Procedures: GROSS AND MICRO LEVEL 4 Comments: [id number]
--- NOTE | 2024-06-05 08:21 | ROE_ITS ---
Date of service: 06/05/24 Time of Service: 08:00 Operative Note Operative Note DATE OF PROCEDURE: 06/05/24 PRE-OP DIAGNOSIS: PMB POST-OP DIAGNOSIS: same Endometrial polyp PROCEDURE: Hysteroscopy D&C, polypectomy SURGEON: Matilda Benedict Refer to Anesthesia Record ESTIMATED BLOOD LOSS: 5 PATHOLOGY: other (polyp and endometrial curettings) COMPLICATIONS: None Patient was transported to: same day Patient's condition: stable Indications: Pt experienced several episodes of postmenopausal bleeding. She had been on HRT and stopped it. An office biopsy was attempted but did not return endoemtrial tissue and was difficult due to her h/o cold knife cone x2. Findings: The cervix was stenotic and difficult to enter. At first a tract was formed on her left but then when the hysteroscope was inserted that was noted to be a false tract. With rotation to her right the endometrial cavity was visualized and entered. A large polyp was noted. Procedure Description: After informed consent was signed the patient was taken to the operating room and given General room air anesthesia. SCDs were placed on her legs. She was prepped and draped in the dorsal lithotomy position in the [facility]. A time out was performed. Her bladder was drained of urine if not done immediately prior to entrance to the OR. Exam under anesthesia revealed normal external genitalia, vagina normal for age and a normal sized uterus. A speculum was placed into the vagina to reveal the cervix. The anterior lip of the cervix was grasped with a single tooth tenaculum. The cervix was stenotic and difficult to enter. It was dilated slowly and at first a tract was formed on her left to about 6cm. Then the hysteroscope was inserted and that was noted to be a false tract. With rotation to her right the endometrial cavity was visualized and entered. A large polyp was noted. The myosure device was inserted and the polyp was easily removed under direct visualization. The cavity appeared normal and the scope was removed. An attempt was made to collect endometrial curettings. The tenaculum was removed from the cerivx with good hemostasis. The speculum was removed from the vagina. The patient was placed back into the supine position. She was moved to the stretcher and taken to the recovery room in stable condition.
--- NOTE | 2024-06-05 08:29 | W.PM.DSUDISC ---
Date of service: 06/05/24 Time of Service: 08:29 Discharge Plan Disposition Patient Disposition: Home Discharge Details Attending Provider: Matilda Benedict Primary Care Provider: Joseph Chen Home Meds and New Rx's Prescriptions: No Action rosuvastatin 20 mg tablet 20 mg PO DAILY Qty: 90 4RF paroxetine HCl [Paxil] 10 mg tablet 10 mg PO DAILY Qty: 90 4RF Veozah 45 mg tablet 45 mg PO DAILY Qty: 30 3RF Patient Comments: 06/05/24: pt reports not taking. 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
[2024-06-05] MEDS: fentaNYL 100 MCG/2 ML VIAL IVP ×2 (08:42→08:48)
--- NOTE | 2024-06-05 08:42 | W.ANESPOSTOP ---
Postoperative Evaluation Date, Time and Location Date Performed: 06/05/24 Time Performed: 08:43 Patient Location: PACU Vital Signs Most Recent Imported Vital Signs: Most Recent Vital Signs Temp Pulse Resp BP Pulse Ox 36.4 C L 71 16 132/79 97 06/05/24 08:30 06/05/24 06:37 06/05/24 06:37 06/05/24 06:37 06/05/24 06:37 Pain Score Most Recent Pain Score: Most Recent Pain Score Pain Level 3 06/05/24 0843 Assessment Mental Status: Awake (Alert & Oriented to Patient Baseline) Airway and Respiratory Function: Patent airway with normal (patient baseline) respiratory exam Cardiovascular Function: Hemodynamically Stable Hydration Status: Adequately Hydrated Nausea & Vomiting: No Nausea or Vomiting Pain: Pain is tolerable per patient Peripheral Nerve Block: Patient did not receive a nerve block
== END 2024-06-05 09:58 | disposition home or self-care (01) ==
LOC: SUR 06:12
PROVIDERS: PCP Nurse Practitioner Family; Visit Provider Obstetrics & Gynecology
PROC: 0UDB8ZZ Extraction of Endometrium, Via Natural or Artificial Opening Endoscopic (ICD-10-PCS; CPT 58558; principal; 2024-06-05 07:30)
DX: N95.0 Postmenopausal bleeding (principal); N84.0 Polyp of corpus uteri
CPT/HCPCS: 58558; 88305; J0665; J1100; J1885; J2001; J2250; J2405; J2704; J3010

== ENCOUNTER 2024-06-17 02:47 | Outpatient (CLI) | payer BC, SELFPAY ==
--- NOTE | 2024-06-17 06:30 | DI.RAD_ITS ---
Exam(s) XR LUMBAR SPINE COMPLETE EXAM: XR LUMBAR SPINE COMPLETE CLINICAL HISTORY: low back pain,m54.50. TECHNIQUE: 2D digital imaging was performed of the lumbar spine. Five images were obtained. AP, la teral, right oblique, left oblique and L5-S1 spot views were obtained. COMPARISON: No exams were available for comparison FINDINGS: BONES: No fracture or destructive lesion. There are small osteophytes seen at the endplates from L2-3 through L4-5. No facet hypertrophy identified. DISKS: Mild narrowing of the T12-L1 and L1-L2 disc spaces is noted. ALIGNMENT: Lumbar spinal alignment is within normal limits. No spondylolysis or spondylolisthesis. SOFT TISSUE: Vascular calcifications are present. IMPRESSION: Mild degenerative changes seen in the lumbar spine. DATA REPOSITORY: RADIATION DOSE DELIVERED:
--- NOTE | 2024-06-17 06:30 | DI.RAD_ITS ---
Exam(s) XR HIP LT COMPLETE AP PELVIS EXAM: XR HIP LT COMPLETE AP PELVIS CLINICAL HISTORY: decrease ROM and pain, no trauma,m25.552. TECHNIQUE: 2D digital imaging was performed of the left hip. Two views were obtained. AP pelvis an d lateral left hip views were obtained. COMPARISON: No exams were available for comparison FINDINGS: BONES: No acute fracture is present. No bony destructive lesion is seen. JOINTS: No dislocation present. SOFT TISSUE: Normal. IMPRESSION: Unremarkable radiographs of the left hip. Unremarkable radiographs of the pelvis DATA REPOSITORY: RADIATION DOSE DELIVERED:
== END 2024-06-17 03:07 ==
LOC: DI 02:47
PROVIDERS: PCP Nurse Practitioner Family; Visit Provider Nurse Practitioner Family
DX: M25.552 Pain in left hip (principal); M51.36 Other intervertebral disc degeneration, lumbar region
CPT/HCPCS: 72110; 73502

== ENCOUNTER 2024-07-30 01:50 | Outpatient (CLI) | payer BC, SELFPAY ==
--- NOTE | 2024-07-30 10:00 | DI.MRI_ITS ---
Exam(s) MR CERVICAL SPINE WO EXAM: MR CERVICAL SPINE WO CLINICAL HISTORY: L cervical radiculopathy type pain,LT ARM PAIN,M79.602 TECHNIQUE: Multiplanar multisequence MRI of the cervical spine was performed without intravenous con trast. COMPARISON: No exams were available for comparison FINDINGS: BONES: Vertebral body heights are maintained. Bone marrow signal intensity is within normal limits. Straightening of the normal cervical lordosis. CERVICAL CORD: Craniovertebral junction is unremarkable. The cervical cord is normal size and signal intensity. SOFT TISSUES: Unremarkable. C2-3: No disc herniation or bulge is identified. No evidence of neural foraminal narrowing. No signi ficant central canal stenosis. C3-4: No disc herniation or bulge is identified. No evidence of neural foraminal narrowing. No signif icant central canal stenosis. C4-5: Mild loss of disc height greater anteriorly posterior disc osteophytes project face the anterio r CSF space. Mild overall central canal stenosis. No evidence of neural foraminal narrowing. C5-6: Mild loss of disc height greater anteriorly. Posteriorly projecting disc osteophytes which eff aidan the anterior CSF space, causing mild central canal stenosis.No evidence of neural foraminal narro wing. C6-7: No disc herniation or bulge is identified. No evidence of neural foraminal narrowing. No signif icant central canal stenosis. C7-T1: No disc herniation or bulge is identified. No evidence of neural foraminal narrowing. No signi ficant central canal stenosis. IMPRESSION: Degenerative disc changes C4-5 and C5-6 causing mild narrowing of the AP dimension of the central can al. No focal disc herniation. No significant neural foraminal narrowing. DATA REPOSITORY:
== END 2024-07-30 02:10 ==
LOC: DI 01:51
PROVIDERS: PCP Nurse Practitioner Family; Visit Provider Psychiatry & Neurology Neurology
DX: M50.122 Cervical disc disorder at C5-C6 level with radiculopathy (principal)
CPT/HCPCS: 72141

== ENCOUNTER 2024-08-19 18:11 | Emergency (ER) | payer BC, SELFPAY ==
[2024-08-19] VITALS (25 sets, daily range): BP systolic 102–147; BP diastolic 45–91; PULSE 69–90; RESP 11–22; TEMP 36.1–36.3; O2SAT 92–99
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
[2024-08-19] MEDS: diazePAM 10 MG/2 ML SYR 5 MG IM (19:03)
[2024-08-19] MEDS: Dexamethasone 10 MG/ML VIAL IVP (19:03)
[2024-08-19] MEDS: Ondansetron 4 MG/2 ML VIAL IVP (19:03)
[2024-08-19 19:17] LABS: Abs Immature Grans 0.02 10^3/uL (0.0-0.06); Absolute Basophil Count 0.03 10^3/uL (0.0-0.2); Absolute Lymphocyte Count 0.63 10^3/uL (1.2-3.4); Absolute Monocyte Count 0.24 10^3/uL (0.1-0.8); Absolute Neutrophil Count 5.26 10^3/uL (1.2-6.7); Basophils % 0.5 %; HCT 43.4 % (36.0-46.0); HGB 14.7 g/dL (11.2-15.7); Immature Grans % 0.3 %; Lymphocytes % 10.2 %; MCH 30.3 pg (27.0-33.0); MCHC 33.9 % (32.0-36.0); MCV 90 fL (80-95); MPV 9.7 fL (8.0-11.0); Monocytes % 3.9 %; Neutrophils % 85.1 %; Platelet Count 313 10^3/uL (130-400); RBC 4.85 10^6/uL (3.93-5.22); RDW 11.9 % (11.7-14.6); RDW-SD 38.7 fL; WBC 6.18 10^3/uL (4.4-10.8)
[2024-08-19 19:19] LABS: ESR 8 mm/hr (0-30)
[2024-08-19 19:39] LABS: ALT 61 U/L (14-59); AST 35 U/L (15-37); Albumin 4.2 g/dL (3.4-5.0); Alkaline Phosphatase 75 U/L (46-116); Anion Gap 8.4 mmol/L (3-11); BUN 14 mg/dL (7-18); Bilirubin, Total 2.01 mg/dL (0.2-1.0); CO2 27.6 mmol/L (21.0-32.0); CREATININE 0.7 mg/dL (0.55-1.02); Calcium 9.5 mg/dL (8.5-10.1); Chloride 104 mmol/L (98-107); Estimated GFR 99.57 (mL/min/1.73m2); Glucose 111 mg/dL (74-106); Lipase 30 U/L (16-77); Magnesium 2.1 mg/dL (1.8-2.4); Potassium 3.7 mmol/L (3.5-5.1); Sodium 140 mmol/L (136-145); TSH (W/Ref FT4) 0.76 uIU/mL (0.36-3.74); Total Protein 7.7 g/dL (6.4-8.2)
[2024-08-19 19:43] LABS: C-Reactive Protein < 0.50 mg/dL (<or=0.5)
[2024-08-19 21:28] LABS: Bilirubin, Direct 0.3 mg/dL (0.0-0.2)
[2024-08-19] MEDS: diazePAM 2 MG TAB PO (21:46)
[2024-08-19] MEDS: Ondansetron O.D.T. 4 MG TABEF, 3 TABS/BTL PO (21:47)
== END 2024-08-19 21:50 | disposition home or self-care (01) ==
PROVIDERS: Emergency Provider Physician Assistant; PCP Nurse Practitioner Family
DX: R42 Dizziness and giddiness (principal); E78.5 Hyperlipidemia, unspecified; H81.09 Meniere's disease, unspecified ear; E80.4 Gilbert syndrome
CPT/HCPCS: 80053; 83690; 85652; 96372; 96374; 96375; 99284; 82248; 83735; 84443; 85025; 86140; 99283; J1100; J2405; J3360

== ENCOUNTER 2025-01-22 14:01 | Outpatient (REF) | payer BC, SELFPAY ==
[2025-01-22 15:34] LABS: Hemoglobin A1C 5.5 % (<5.7)
[2025-01-22 15:51] LABS: Calculated LDL 173 mg/dL (<100); Cholesterol 258 mg/dL (<200); HDL Cholesterol 64 mg/dL (>or=50); Triglyceride 109 mg/dL (<150)
[2025-01-23 09:51] LABS: Hepatitis C Ab w Rflx HCV PCR Negative (Negative)
[2025-01-23 09:54] LABS: HBs Antibody, Quant <3.1 mIU/mL (See Note); Hep B Surface Ab Negative (See Note); Hepatitis B Core Antibody Negative (Negative); Hepatitis B Surface Antigen Negative (Negative)
== END 2025-01-22 14:02 | disposition home or self-care (01) ==
LOC: LBN 14:01
PROVIDERS: PCP Nurse Practitioner Family; Visit Provider Nurse Practitioner Family
DX: E78.5 Hyperlipidemia, unspecified (principal); Z53.20 Procedure and treatment not carried out because of patient's decision for unspecified reasons; R73.9 Hyperglycemia, unspecified; Z23 Encounter for immunization
CPT/HCPCS: 80061; 86704; 86706; 86803; 87340; 83036